=== PATIENT | female | born 1995 | race Caucasian/White ===

== ENCOUNTER 2020-12-10 13:30 | Inpatient (IN) ==
[2020-12-10] MEDS ORDERED: ONDANSETRON 4 MG/2 ML VIAL IV ONE (13:58)
[2020-12-10] MEDS ORDERED: SODIUM CHLORIDE 0.9% 1,000 ML IV STA (13:58)
[2020-12-10] MEDS ORDERED: HYDROmorphone 2 MG/1 ML VIAL IV STA (14:00)
[2020-12-10 14:18] LABS: Basophils % 0.3 % (0.0-0.8); Eosinophils % 0.1 % (0.00-10.9); Hematocrit 42.3 VOL% (35.7-47.0); Hemoglobin 13.8 GM/DL (12.0-16.0); Immature Granulocytes % 0.6 %; Immature Granulocytes Absolute 0.07 #; Lymphocytes # 0.6 10*3/uL (1.4-4.0); Lymphocytes % 4.8 % (21.3-54.2); Mean Corpuscular HGB Conc 32.6 GM/DL (32-36); Mean Corpuscular Volume 93.4 FL (87-102); Mean Platelet Volume 9.4 FL (9.6-12.0); Monocytes % 4.6 % (1.7-12.7); Neutrophils % 89.6 % (38.7-73.9); Platelet Count 378 T/CUMM (130-400); Red Blood Count 4.53 MC/CUMM (3.8-5.5); White Blood Count 12.3 T/CUMM (4-12)
[2020-12-10 14:37] LABS: Calcium 9.2 MG/DL (8.5-10.1); Osmolality,Calculated 274.7 MOS/KG (273-304); Potassium 4.6 MMOL/L (3.5-5.1)
[2020-12-10 14:51] LABS: Bilirubin,Urine Negative (Negative); Blood, Urine Small mg/dL (Negative); Glucose,Urine (UA) Negative (Negative); Ketones,Urine Negative (Negative); Mucus,Urine Few /LPF (Occasional); Nitrite,Urine Negative (Negative); Protein,Urine Negative; RBC,Urine 1 /HPF (0-4); Squamous Epithelial Cell,Urine Occasional /HPF (0-10); Urine Appearance CLEAR (Clear); Urine Color Yellow (Yellow); Urine Specific Gravity 1.021 (1.001-1.035); Urine Urobilinogen < 2.0 EU/DL (0.2-1.0)
[2020-12-10 15:00] LABS: Lymphocytes 6 % (20-55); Macrocytosis Slight; Segmented Neutrophils 91 % (50-85); Total Cells Counted 100
[2020-12-10 15:01] LABS: Hypochromasia Slight; Platelet Estimate Normal
[2020-12-10] MEDS ORDERED: LACTULOSE 20 GM/30 ML UDCUP PO PRN (15:16)
[2020-12-10] MEDS ORDERED: PROMETHAZINE 25 MG/1 ML VIAL IM PRN (15:16)
[2020-12-10] MEDS ORDERED: HYDROmorphone 2 MG/1 ML VIAL IV PRN (15:16)
[2020-12-10] MEDS ORDERED: ACETAMINOPHEN 325 MG TABLET PO PRN (15:16)
[2020-12-10] MEDS ORDERED: MAGNESIUM HYDROXIDE SUSP 30 ML UDCUP PO PRN (15:16)
[2020-12-10] MEDS ORDERED: ONDANSETRON 4 MG/2 ML VIAL IV PRN (15:16)
[2020-12-10] MEDS ORDERED: diphenhydrAMINE 50 MG/1 ML VIAL IV PRN (15:19)
[2020-12-10] MEDS ORDERED: SIMETHICONE CHEW 80 MG TABLET PO PRN (15:20)
[2020-12-10] MEDS: cefTRIAXone 1,000 MG in SODIUM CHLORIDE 0.9% 100 ML IV SCH (15:50)
[2020-12-10] MEDS: KETOROLAC 30 MG/1 ML VIAL IV PRN ×2 (15:58→21:07)
[2020-12-10] MEDS: DEXT 5% NACL 0.45% KCL 20 MEQ 20 MEQ/1,000 ML BAG IV SCH (18:49)
[2020-12-10] MEDS: DOCUSATE SODIUM 100 MG CAPSULE PO SCH (21:06)
[2020-12-10] MEDS: TAMSULOSIN 0.4 MG CAPSULE PO SCH (21:07)
[2020-12-10] MEDS: FAMOTIDINE 20 MG TABLET PO SCH (21:07)
[2020-12-11] MEDS: DEXT 5% NACL 0.45% KCL 20 MEQ 20 MEQ/1,000 ML BAG IV SCH ×2 (02:58→10:30)
[2020-12-11] MEDS: KETOROLAC 30 MG/1 ML VIAL IV PRN ×2 (05:24→18:45)
[2020-12-11 06:19] LABS: Basophils % 0.5 % (0.0-0.8); Eosinophils # 0.1 10*3/uL (0.0-0.87); Eosinophils % 0.8 % (0.00-10.9); Hemoglobin 11.7 GM/DL (12.0-16.0); Immature Granulocytes % 0.9 %; Immature Granulocytes Absolute 0.06 #; Lymphocytes # 1.1 10*3/uL (1.4-4.0); Lymphocytes % 16.9 % (21.3-54.2); Mean Corpuscular HGB Conc 31.6 GM/DL (32-36); Mean Corpuscular Volume 95.6 FL (87-102); Mean Platelet Volume 9.8 FL (9.6-12.0); Monocytes % 12.8 % (1.7-12.7); Neutrophils % 68.1 % (38.7-73.9); Platelet Count 322 T/CUMM (130-400); Red Blood Count 3.87 MC/CUMM (3.8-5.5); Red Cell Distribution Width 13.2 % (9.3-17.3); White Blood Count 6.5 T/CUMM (4-12)
[2020-12-11 06:44] LABS: Calcium 8.2 MG/DL (8.5-10.1); Osmolality,Calculated 271.7 MOS/KG (273-304)
[2020-12-11 07:14] LABS: Platelet Estimate Normal
[2020-12-11 07:15] LABS: Anisocytosis Slight; Burr Cells Few
[2020-12-11 07:16] LABS: Macrocytosis Slight
[2020-12-11] MEDS: DOCUSATE SODIUM 100 MG CAPSULE PO SCH ×2 (09:50→21:04)
[2020-12-11] MEDS ORDERED: LEVOFLOXACIN 500 MG TABLET PO SCH (12:00)
[2020-12-11] MEDS: cefTRIAXone 1,000 MG in SODIUM CHLORIDE 0.9% 100 ML IV SCH (16:19)
[2020-12-11] MEDS: TAMSULOSIN 0.4 MG CAPSULE PO SCH (21:04)
[2020-12-11] MEDS: FAMOTIDINE 20 MG TABLET PO SCH (21:04)
[2020-12-12] MEDS: DEXT 5% NACL 0.45% KCL 20 MEQ 20 MEQ/1,000 ML BAG IV SCH (08:15)
[2020-12-12 08:17] VITALS: BP 101/60
[2020-12-12] MEDS: DOCUSATE SODIUM 100 MG CAPSULE PO SCH (09:43)
== END 2020-12-12 10:15 | disposition home or self-care (01) | DRG 690 ==
LOC: N.ED 13:30 → N.EDINP 15:16 → N.3E 17:58
PROVIDERS: ADMIT Surgery; ATTEND Surgery